=== PATIENT | female | born 1945 | race Caucasian/White ===

== ENCOUNTER 2020-10-23 13:46 | Emergency (ER) | payer MEDICARE, BC, SELFPAY ==
[2020-10-23 14:10] VITALS: BP 202/94; PULSE 82; RESP 15; TEMP 36.6; O2SAT 97; BMI 26.9
[2020-10-23 14:36] LABS: Bacteria Urine None Seen; WBC Urine None Seen (0-5/HPF)
[2020-10-23 14:47] LABS: RBC Urine 5-10/HPF (0-5/HPF); Squamous Epithelial Cell Urine 5-10 /HPF (0-5/HPF)
--- NOTE | 2020-10-23 16:07 | DI.RAD.S_ITS ---
PROCEDURE: XR CHEST 1V INDICATIONS: suspected sepsis TECHNIQUE: One view of the chest was acquired. COMPARISON: None. FINDINGS: Surgical changes and devices: None. Lungs and pleura: Lungs are clear. No pleural effusions or pneumothorax. Mediastinum: Mediastinal contours appear normal. Heart size is normal. Bones and chest wall: No suspicious bony lesions. Overlying soft tissues appear unremarkable. Age related degenerative changes are seen in the spine. IMPRESSION: No acute cardiopulmonary abnormality. Dictated by: Thomas Restrepo M.D. on 10/23/2020 at 16:02 Approved by: Thomas Restrepo M.D. on 10/23/2020 at 16:03
--- NOTE | 2020-10-23 16:42 | ED.PSYCH ---
HPI - Psych General Chief Complaint: Psychiatric Symptoms Stated Complaint: hallucinations, paranoia, getting worse Time Seen by Provider: 10/23/20 16:17 Source: patient and family Mode of arrival: Ambulatory History of Present Illness HPI Narrative: 75-year-old woman comes in with complaints of increasing hallucinations, evening wondering, reports that her is trying to kill her or she is trying to kill him that people are trying to get into her house with increasing anxiety and irritability over the last number of days. She has no complaints of fever, cough, chills, dysuria, abdominal pain, chest pain, palpitations, skin rashes no recent trauma no headaches no acute neurologic changes otherwise. Patient does not know her medications and is not sure of any of her diagnoses specifically any for psychiatric diagnoses She is followed by a primary care doctor and psychiatrist in [place]. Both confirm that she has anxiety and panic along with depression as her primary psychiatric disorders. No prior memory issues or any hallucinations of any sort. Her primary care doctor reports 0.25 mg of Xanax b.i.d. that she rarely uses but was refilled in September prior to coming up to [place], duloxetine 60 mg (psychiatrist indicates that it 60 mg +30 mg) Abilify 2 mg at night to augment the duloxetine. She is also on amlodipine/benazepril for blood pressure, [place] for severe rheumatoid arthritis pain. I was able to speak with her psychiatrist who had noted that earlier this week they had added 10 mg of paroxetine to see if this might help with the afternoon anxiety and increased frustration and [place] ring that has plagued the relationship between her and . They did have a telephone meeting earlier this week with some reports of the developing hallucinations and he wanted her to stop the paroxetine. Related Data Allergies Allergy/AdvReac Type Severity Reaction Status Date / Time codeine Allergy Unknown Verified 10/23/20 14:13 niacin Allergy Unknown Verified 10/23/20 14:13 Review of Systems Review of Systems Narrative: Remainder of review is unremarkable Patient History Social History Smoking Status: Unknown if ever smoked Smoking Status: Unknown if ever smoked alcohol intake frequency: holidays/special occasions only Substance Use Type: does not use Exam Narrative Exam Narrative: General: Healthy appearing, in no acute distress. Well-nourished well-developed HEENT: Moist mucous membranes, normal sclera with reactive pupils, Respiratory: Lungs are clear to auscultation, no wheezing no rales no rhonchi. Full and symmetrical air movement Cardiac: Regular rate and rhythm no murmurs no bruits Abdomen: Soft, nontender, good bowel tones, no flank pain Skin: Warm and dry, no rashes Neurologic: Grossly neurologically intact with no obvious asymmetries or abnormalities Extremities: No trauma, well perfused Psych: Very poor memory recall, moderate insight into the fact that the hallucinations are present and disturbing, fluent speech and not responding to any internal stimuli with our discussion today Initial Vital Signs Initial Vital Signs: Vital Signs Temperature 97.8 F 10/23/20 14:10 Pulse Rate 82 10/23/20 14:10 Respiratory Rate 15 10/23/20 14:10 Blood Pressure 202/94 H 10/23/20 14:10 Pulse Oximetry 97 10/23/20 14:10 Course Orders Ordered: ED Orders 10/23/20 14:35 Urine Culture Stat Urine Microscopic Stat 10/23/20 16:07 XR chest 1V Stat EKG-12 Lead Stat 10/23/20 16:26 Complete Blood Count AUTO DIFF Stat Comprehensive Metabolic Panel Stat Lactate (Lactic Acid) Stat Lipase Stat Procalcitonin Stat 10/23/20 16:36 Blood Culture Stat 10/23/20 18:13 CT head/brain wo con Stat Discontinued Medications Sodium Chloride (Normal Saline 0.9%) 1,000 mls @ 1,000 mls/hr IV BOLUS ONE Stop: 10/23/20 17:06 Last Admin: 10/23/20 17:14 Dose: 1,000 mls/hr Documented by: WON Lorazepam (Lorazepam 2 Mg/Ml Inj) 2 mg IV NOW ONE Stop: 10/23/20 17:41 Last Admin: 10/23/20 17:53 Dose: 2 mg Documented by: WON Vital Signs Vital signs: Vital Signs - 8 hr 10/23/20 14:10 Temperature 97.8 F Pulse Rate 82 Respiratory Rate 15 Blood Pressure 202/94 H Pulse Oximetry 97 MDM - Psych Lab Data Result diagrams: 10/23/20 16:26 10/23/20 16:26 Labs: Lab Results 10/23/20 10/23/20 10/23/20 Range/Units 14:35 16:26 16:26 WBC 7.2 (4.5-11.0) X10^3/uL RBC 3.89 L (4.0-5.2) X10^6/uL Hgb 11.7 L (12.0-16.0) g/dL Hct 34.5 L (36-46) % MCV 88.7 (80-100) fL MCH 30.1 (26-34) PG MCHC 33.9 (30-36) % RDW 16.0 H (11.6-14.8) % Plt Count 350 (150-400) X10^3/uL Neut % (Auto) 65.4 (50-75) % Lymph % (Auto) 22.0 L (25-40) % [place] % (Auto) 8.8 (3-14) % Eos % (Auto) 3.3 (2-4) % Baso % (Auto) 0.5 (0-2) % Neut # (Auto) 4700 (7706-4494) /uL Lymph # (Auto) 1600 (4213-8452) /uL [place] # (Auto) 600 (0-900) /uL Eos # (Auto) 200 (0-450) /uL Baso # (Auto) 0 (0-100) /uL Sodium 140 (137-145) mmol/L Potassium 3.9 (3.4-5.1) mmol/L Chloride 107 (98-107) mmol/L Carbon Dioxide 27 (22-32) mmol/L BUN 19 H (7-17) mg/dL Creatinine 0.76 (0.52-1.04) mg/dL Estimated GFR > 60.0 (>60) mL/min BUN/Creatinine Ratio 25.0 H (6-22) Glucose 102 (80-110) mg/dL Lactate (0.7-2.1) mmol/L Calcium 9.8 (8.4-10.2) mg/dL Total Bilirubin 0.8 (0.2-1.3) mg/dL AST 49 H (14-36) IU/L ALT 34 (<35) IU/L Alkaline Phosphatase 56 (38-126) U/L Total Protein 7.8 (6.3-8.2) g/dL Albumin 4.6 (3.5-5.0) g/dL Globulin 3.2 (1.7-4.1) g/dL Albumin/Globulin Ratio 1.4 (1.0-2.8) Lipase 89 (23-300) U/L Procalcitonin 0.04 (<0.5) ng/mL Urine RBC 5-10/hpf H (0-5/HPF) Urine WBC None seen (0-5/HPF) Ur Squamous Epith Cells 5-10 /hpf H (0-5/HPF) Urine Bacteria None seen (None) Ur Culture Indicated? Culture not indicate 10/23/20 Range/Units 16:26 WBC (4.5-11.0) X10^3/uL RBC (4.0-5.2) X10^6/uL Hgb (12.0-16.0) g/dL Hct (36-46) % MCV (80-100) fL MCH (26-34) PG MCHC (30-36) % RDW (11.6-14.8) % Plt Count (150-400) X10^3/uL Neut % (Auto) (50-75) % Lymph % (Auto) (25-40) % [place] % (Auto) (3-14) % Eos % (Auto) (2-4) % Baso % (Auto) (0-2) % Neut # (Auto) (3058-3071) /uL Lymph # (Auto) (6523-1910) /uL [place] # (Auto) (0-900) /uL Eos # (Auto) (0-450) /uL Baso # (Auto) (0-100) /uL Sodium (137-145) mmol/L Potassium (3.4-5.1) mmol/L Chloride (98-107) mmol/L Carbon Dioxide (22-32) mmol/L BUN (7-17) mg/dL Creatinine (0.52-1.04) mg/dL Estimated GFR (>60) mL/min BUN/Creatinine Ratio (6-22) Glucose (80-110) mg/dL Lactate 1.1 (0.7-2.1) mmol/L Calcium (8.4-10.2) mg/dL Total Bilirubin (0.2-1.3) mg/dL AST (14-36) IU/L ALT (<35) IU/L Alkaline Phosphatase (38-126) U/L Total Protein (6.3-8.2) g/dL Albumin (3.5-5.0) g/dL Globulin (1.7-4.1) g/dL Albumin/Globulin Ratio (1.0-2.8) Lipase (23-300) U/L Procalcitonin (<0.5) ng/mL Urine RBC (0-5/HPF) Urine WBC (0-5/HPF) Ur Squamous Epith Cells (0-5/HPF) Urine Bacteria (None) Ur Culture Indicated? Urine Dip Bedside Urine Glucose Negative Bedside Urine Bilirubin - Negative Bedside Urine Ketone - Negative Urine Specific [place] 1.030 Bedside Urine Occult Blood +++ Bedside Urine pH 5.5 Bedside Urine Protein +/- 15 Bedside Urine Urobilinogen - Negative Bedside Urine Nitrite - Negative Bedside Urine Leukocytes - Negative Esterase Imaging Data Chest x-ray: Radiologist's Impression: FINDINGS: Surgical changes and devices: None. Lungs and pleura: Lungs are clear. No pleural effusions or pneumothorax. Mediastinum: Mediastinal contours appear normal. Heart size is normal. Bones and chest wall: No suspicious bony lesions. Overlying soft tissues appear unremarkable. Age related degenerative changes are seen in the spine. IMPRESSION: No acute cardiopulmonary abnormality. Dictated by: Thomas Restrepo M.D. on 10/23/2020 at 16:02 CT scan - head: Radiologist's Impression: FINDINGS: Image quality: Excellent. CSF spaces: Basal cisterns are patent. No extra-axial fluid collections. The ventricles are symmetric in size and shape. Brain: No intracranial bleeds or masses. There is cerebral volume loss for age, with resultant ventricular and sulcal prominence. There are periventricular and deep white matter chronic small vessel ischemic changes. There is intracranial internal carotid artery atherosclerosis. Skull and face: Calvarium and visualized facial bones appear intact, without suspicious lesions. Sinuses: Mucosal thickening is seen in the included right maxillary sinus. The remaining paranasal sinuses and mastoid air cells are clear. IMPRESSION: 1. No acute intracranial abnormality. 2. Mild age related cerebral volume loss and chronic microvascular ischemic changes. Dictated by: Thomas Restrepo M.D. on 10/23/2020 at 17:24 ECG Data Interpretation: Sinus rhythm at a rate of [address] T wave abnormalities normal intervals, normal axis MDM Narrative Medical decision making narrative: 75-year-old woman with increasing hallucinations, memory dysfunction and wandering all of this rather abruptly starting earlier this week. In discussing care with her psychiatrist apparently paroxetine have been added and this had been since discontinued. Patient is unclear on her medications and has a number of psychoactive medications and doses that if she isn't taking as she had been can certainly cause some of these issues. Given the abrupt change and the negative workup today it is highly likely that the hallucinations and wondering are medication related. Her psychiatrist recommended increasing her Abilify from 2 mg to 4 mg at bedtime to help suppress the hallucinations and help with sleep. Please see discharge instructions for clear details on medications that need to be continued and dose Discharge Plan Departure Patient Disposition: Home Clinical Impression: Anxiety Drug-induced psychotic disorder Qualifiers: Complication of substance-induced condition: with hallucinations Qualified Code(s): F19.951 - Other psychoactive substance use, unspecified with psychoactive substance-induced psychotic disorder with hallucinations Depression Qualifiers: Depression Type: unspecified Qualified Code(s): F32.9 - Major depressive disorder, single episode, unspecified Instructions: DI for Atypical Depression Activity Restrictions/Additional Instructions: Thank you for coming in today I have had the opportunity to talk with both your primary care physician as well as her psychiatrist. Your medical workup is unremarkable. There is no evidence of infection, sepsis, brain abnormalities masses or tumors I suspect that the recent confusion, hallucinations and wondering are medicine related. In talking with both of your physicians the following is the way that you should be taking your medications. You may benefit from having a pillbox to make sure that is clearly identified which you are supposed to be taking making it clear that they have actually been taken that day without any extra dosing accidentally Blood pressure: amlodipine/benazepril 5-10, 1 capsule daily Coreg/carvedilol 1.25 mg twice a day Triamterene/hydrochlorothiazide 37.5-25mg daily Astelin nasal spray 2 times a day as directed for allergies Flonase 2 sprays each nostril daily Probiotics daily For rheumatoid arthritis pain: hydrocodone acetaminophen/[place] 5-325 every 6 hours as needed for pain For stomach acid: Zantac 75 mg a.m. and p.m. Xeljanz 5 mg daily For cholesterol: 20 mg of Crestor/rosuvastatin daily For your anxiety and depression: Duloxetine, one 30 mg and one 60 mg tablet daily Abilify 2 mg at bedtime. Your psychiatrist has asked that you increase this to 4 mg at bedtime Paroxetine had been prescribed 10 mg and discontinued earlier this week. Please stay off this medication Do not take Ambien 0.25 mg of Xanax up to twice a day as needed for severe anxiety. Given current concerns with medications and side effects I would recommend that you hold on any additional Xanax and till you feel that you are back on stable footing psychiatrically Your psychiatrist did say that you are certainly welcome to schedule another telephone appointment with him early next week and I would encourage you to do so If you have worsening symptoms please feel free to return to the ER
[2020-10-23 16:45] LABS: Add Manual Diff / Slide Review NO; Basophils Absolute Auto 0 /uL (0-100); Basophils Percent Auto 0.5 % (0-2); Eosinophils Absolute Auto 200 /uL (0-450); Eosinophils Percent Auto 3.3 % (2-4); Hematocrit 34.5 % (36-46); Hemoglobin 11.7 g/dL (12.0-16.0); Lymphocytes Absolute Auto 1600 /uL (1100-4500); Mean Corpuscular HGB Conc 33.9 % (30-36); Mean Corpuscular Hemoglobin 30.1 PG (26-34); Mean Corpuscular Volume 88.7 fL (80-100); Monocytes Absolute Auto 600 /uL (0-900); Monocytes Percent Auto 8.8 % (3-14); Neutrophils Absolute Auto 4700 /uL (1500-7000); Neutrophils Percent Auto 65.4 % (50-75); Platelet Count 350 X10^3/uL (150-400); Red Blood Cell Count 3.89 X10^6/uL (4.0-5.2); White Blood Cell Count 7.2 X10^3/uL (4.5-11.0)
[2020-10-23 16:59] LABS: Alanine Aminotransferase 34 IU/L (<35); Albumin 4.6 g/dL (3.5-5.0); Albumin Globulin Ratio 1.4 (1.0-2.8); Alkaline Phosphatase 56 U/L (38-126); Aspartate Aminotransferase 49 IU/L (14-36); Bilirubin Total 0.8 mg/dL (0.2-1.3); Blood Urea Nitrogen 19 mg/dL (7-17); Calcium 9.8 mg/dL (8.4-10.2); Carbon Dioxide 27 mmol/L (22-32); Chloride 107 mmol/L (98-107); Estimated Glomerular Filt Rate > 60.0 mL/min (>60); Globulin 3.2 g/dL (1.7-4.1); Glucose 102 mg/dL (80-110); HEMOLYSIS 36 (0-50); Lipase 89 U/L (23-300); Potassium 3.9 mmol/L (3.4-5.1); Sodium 140 mmol/L (137-145); Total Protein 7.8 g/dL (6.3-8.2)
[2020-10-23 17:00] LABS: Lactate (Lactic Acid) 1.1 mmol/L (0.7-2.1)
[2020-10-23] MEDS: SODIUM CHLORIDE 0.9% 1,000 ML 1000 ML IV (17:14)
[2020-10-23 17:15] LABS: Procalcitonin 0.04 ng/mL (<0.5)
--- NOTE | 2020-10-23 17:23 | PC.NURSE ---
Dr Linda's office called, for consult. Awaiting call back for Dr Toure
--- NOTE | 2020-10-23 17:34 | PC.NURSE ---
Dr Hernández called and consulting with Dr Toure
[2020-10-23] MEDS: LORazepam 2 MG/ML INJ IV (17:53)
--- NOTE | 2020-10-23 18:13 | DI.CT.S_ITS ---
PROCEDURE: CT HEAD/BRAIN WO CON INDICATIONS: altered mental status TECHNIQUE: Noncontrast 4.5 mm thick angled axial sections acquired from the foramen magnum to the vertex, with coronal and sagittal reformats. For radiation dose reduction, the following was used: automated exposure control, adjustment of mA and/or kV according to patient size. COMPARISON: None. FINDINGS: Image quality: Excellent. CSF spaces: Basal cisterns are patent. No extra-axial fluid collections. The ventricles are symmetric in size and shape. Brain: No intracranial bleeds or masses. There is cerebral volume loss for age, with resultant ventricular and sulcal prominence. There are periventricular and deep white matter chronic small vessel ischemic changes. There is intracranial internal carotid artery atherosclerosis. Skull and face: Calvarium and visualized facial bones appear intact, without suspicious lesions. Sinuses: Mucosal thickening is seen in the included right maxillary sinus. The remaining paranasal sinuses and mastoid air cells are clear. IMPRESSION: 1. No acute intracranial abnormality. 2. Mild age related cerebral volume loss and chronic microvascular ischemic changes. Dictated by: Thomas Restrepo M.D. on 10/23/2020 at 17:24 Approved by: Thomas Restrepo M.D. on 10/23/2020 at 17:27
[2020-10-23 19:17] VITALS: BP 178/74; PULSE 82; RESP 12; O2SAT 97
== END 2020-10-23 19:18 | disposition home or self-care (01) ==
PROVIDERS: Emergency Provider Emergency Medicine; Family Provider Family Medicine
DX: F19.951 Other psychoactive substance use, unspecified with psychoactive substance-induced psychotic disorder with hallucinations (principal); F32.9 Major depressive disorder, single episode, unspecified; F41.9 Anxiety disorder, unspecified; I10 Essential (primary) hypertension
CPT/HCPCS: 36415; 70450; 71045; 80053; 81003; 81015; 83605; 83690; 84145; 85025; 87040; 87086; 93005; 93010; 96361; 96374; 99285; J2060